=== PATIENT | male | born 1970 | race Caucasian/White ===

== ENCOUNTER 2024-05-04 00:52 | Emergency (ER) | payer MEDICARE ==
[~2024-05-04] VITALS: Ht 167.6 cm; Wt 70.0 kg
[2024-05-04 01:29] LABS: BASOPHILS 0.5 % (0-2); EOSINOPHILS 1.4 % (0-6); HEMATOCRIT 38.4 % (35.0-50.0); HEMOGLOBIN 13.1 g/dL (12.0-18.0); LYMPHOCYTES 21.2 % (24-44); MCH 30.9 (27-36); MCHC 34.2 g/dl (30-36); MCV 90.4 fl (81-99); NEUTROPHILS 67.9 % (39-80); PLATELET COUNT 297 K/uL (140-440); RBC 4.24 M/ul (4.3-5.7); RDW 13.1 (10.5-15.0)
[2024-05-04 01:50] LABS: ALBUMIN 3.6 g/dL (3.4-5.0); ALBUMIN/GLOBULIN RATIO 0.88 (1.1-2.4); ANION GAP 14.2 (7-21); BILIRUBIN, TOTAL 1.1 ng/dL (0.2-1.0); BUN/CREATININE RATIO 12.78 (6.0-28.6); CALCIUM 9.2 mg/dL (8.5-10.1); CREATININE, SERUM 1.33 mg/dL (0.70-1.30); POTASSIUM 4.2 mmol/L (3.5-5.1); PROTEIN, TOTAL 7.7 g/dL (6.4-8.2)
[2024-05-04] MEDS ORDERED: PREDNISONE20 MG PO (02:10)
[2024-05-04] MEDS ORDERED: predniSONE 20 MG TAB PO ONE (02:15)
[2024-05-04 02:22] VITALS: BP 121/92
[2024-05-04 02:33] LABS: ERYTHROCYTE SEDIMENTATION RATE 43
== END 2024-05-04 02:23 | disposition home or self-care (01) ==
LOC: ED 00:52
PROVIDERS: Internal Medicine
DX: M10.9 Gout, unspecified (principal); Z88.0 Allergy status to penicillin
CPT/HCPCS: 36415; 73560; 80053; 84550; 85025; 85379; 85651; 86140; 99283; J7512